=== PATIENT | female | born 1960 | race Caucasian/White ===

== ENCOUNTER 2017-09-25 00:28 | Emergency (ER) | payer SELFPAY ==
[~2017-09-25] VITALS: Ht 167.6 cm; Wt 65.0 kg
[2017-09-25 00:56] VITALS: BP 184/99; PULSE 83; RESP 18; TEMP 98.1; O2SAT 100
[2017-09-25 02:08] LABS: BACTERIA, URINE RARE /hpf; BILIRUBIN, URINE NEG (NEG); BLOOD, URINE MOD (NEG); GLUCOSE,URINE NEG (NEG); KETONE, URINE NEG (NEG); MUCUS URINE FEW /lpf (OCC); NITRITE,URINE POS (NEG); URINE LEUKOCYTE ESTERASE NEG (NEG)
[2017-09-25 02:11] LABS: URINE COLOR DARK-BROWN (YELLW/STRAW)
[2017-09-25] MEDS ORDERED: MACR100C2 PO (02:40)
[2017-09-25] MEDS ORDERED: NITROFURANTOIN MONOHYD MACROCR 100 MG CAP PO ONE (02:45)
[2017-09-25] MEDS ORDERED: FLUC150T PO (02:47)
--- NOTE | 2017-09-25 02:47 | PD ---
HPI Chief Complaint: Complaint Time Seen by Provider: 02:20 Travel History International Travel<30 days: No Contact w/Intl Traveler<30days: No Traveled to known affect area: No History of Present Illness HPI 57-year-old female presents for evaluation of dysuria and increased urinary frequency. Symptoms started today. She reports a burning sensation when she urinates. Denies abdominal pain, flank pain, nausea, vomiting, fevers, chills, vaginal discharge. She has no other complaints at this time. [facility] Past Medical History Arthritis: Yes Cerebrovascular Accident: Yes Diminished Hearing: No Hypertension: Yes Tetanus Vaccination: Unknown Influenza Vaccination: No ?: Not LMP: menapause Tubal Ligation: Yes Past Surgical History Section: Yes Social History Alcohol Use: Yes (jose armando) Tobacco Use: No Substance Use: No Allergies-Medications (Allergen,Severity, Reaction): Coded Allergies: morphine (Verified Allergy, Severe, 09/25/17) swelling and "rip my skin off" niacin (Verified Allergy, Severe, 09/25/17) "I go in and out" Reported Meds & Prescriptions Reported Meds & Active Scripts Active Fluconazole 150 Mg Tab 150 Mg PO ONCE Macrobid (Nitrofurantoin Monoh/Nitrofur Macro) 100 Mg Cap 100 Mg PO BID 7 Days Review of Systems Except as stated in HPI: all other systems reviewed are Neg Physical Exam Narrative GENERAL: Well-developed well-nourished female no acute distress SKIN: Warm and dry. HEAD: Atraumatic. Normocephalic. EYES: Pupils equal and round. No scleral icterus. No injection or drainage. ENT: No nasal bleeding or discharge. Mucous membranes pink and moist. NECK: Trachea midline. No JVD. CARDIOVASCULAR: Regular rate and rhythm. No murmur appreciated. RESPIRATORY: No accessory muscle use. Clear to auscultation. Breath sounds equal bilaterally. GASTROINTESTINAL: Abdomen soft, non-tender, nondistended. Hepatic and splenic margins not palpable. Data Data Last Documented VS Vital Signs Date Time Temp Pulse Resp B/P (MAP) Pulse Ox O2 Delivery O2 Flow Rate FiO2 09/25/17 00:56 98.1 83 18 184/99 (127) 100 Orders Orders Urinalysis - C+S If Indicated (09/25/17 01:34) Urine Culture (09/25/17 01:38) Ed Discharge Order (09/25/17 02:45) Nitrofurantoin Monohyd Macrocr (Macrobid (09/25/17 02:45) Labs Laboratory Tests Test 09/25/17 01:38 Urine Color DARK-BROWN Urine Turbidity CLOUDY Urine pH 6.0 Urine Specific [place] 1.025 Urine Protein 100 mg/dL Urine Glucose (UA) NEG mg/dL Urine Ketones NEG mg/dL Urine Occult Blood MOD Urine Nitrite POS Urine Bilirubin NEG Urine Urobilinogen LESS THAN 2.0 MG/DL Urine Leukocyte Esterase NEG Urine RBC /hpf Urine WBC /hpf Urine Bacteria RARE /hpf Urine Mucus FEW /lpf Urine Yeast (Budding) MANY Microscopic Urinalysis Comment CULTURE INDICATED MDM Medical Decision Making Medical Screen Exam Complete: Yes Emergency Medical Condition: Yes Medical Record Reviewed: Yes Differential Diagnosis UTI, pyelonephritis, cervicitis Narrative Course Urinalysis is consistent with urinary tract infection. She will be discharged with Macrobid. She is requesting a prescription for fluconazole as she frequently gets yeast infections after being on antibiotics. Diagnosis Primary Impression: Urinary tract infection Additional Instructions: Medication as prescribed. Stay well hydrated and well-nourished. Return for any emergent medical conditions. Med/Other Pt SpecificInfo: Prescription(s) given Scripts Fluconazole (Fluconazole) 150 Mg Tab 150 MG PO ONCE for Infection, #1 TAB 0 Refills Prov: Daryl Skaggs MD 09/25/17 Nitrofurantoin Monohydrate Macrocrystals (Macrobid) 100 Mg Cap 100 MG PO BID for Infection for 7 Days, #14 CAP 0 Refills Prov: Daryl Skaggs MD 09/25/17 Disposition: 01 DISCHARGE HOME Condition: Stable Juan Da Silva Sep 25, 2017 02:47
[2017-09-25 03:22] VITALS: BP 132/78; TEMP 98.1
== END 2017-09-25 03:23 | disposition home or self-care (01) ==
LOC: NEPD 00:28
DX: N39.0 Urinary tract infection, site not specified (principal); B96.20 Unspecified Escherichia coli [E. coli] as the cause of diseases classified elsewhere; M19.90 Unspecified osteoarthritis, unspecified site; I10 Essential (primary) hypertension; Z86.73 Personal history of transient ischemic attack (TIA), and cerebral infarction without residual deficits; Z88.5 Allergy status to narcotic agent; Z88.8 Allergy status to other drugs, medicaments and biological substances; Z79.899 Other long term (current) drug therapy
CPT/HCPCS: 81001; 87077; 87086; 87186; 99283